=== PATIENT | male | born 1975 | race Caucasian/White ===

== ENCOUNTER 2021-06-18 18:45 | Emergency (ER) | payer BC ==
[~2021-06-18] VITALS: Ht 172.7 cm; Wt 83.9 kg
[2021-06-18] MEDS ORDERED: LEXAPRO 10 MG T10 M2 PO (19:22)
[2021-06-18] MEDS ORDERED: PROTONIX40 M2 PO (19:23)
[2021-06-18] MEDS ORDERED: ICOSAPENT ETHYL1 GM PO (19:24)
[2021-06-18 20:02] LABS: URINE BLOOD NEGATIVE (Negative); URINE CLARITY CLEAR; URINE COLOR YELLOW; URINE GLUCOSE-RANDOM NEGATIVE (Negative); URINE KETONES NEGATIVE (Negative); URINE LEUKOCYTES-REFLEX NEGATIVE (Negative); URINE NITRITE-REFLEX NEGATIVE (Negative); URINE PROTEIN 1+ (Negative); URINE SPECIFIC GRAVITY >= 1.030 (1.005-1.030)
[2021-06-18 20:06] LABS: ICTOTEST (BILI CONFIRMATORY) Negative (Negative); URINE BILIRUBIN 1+ (Negative)
[2021-06-18 20:10] LABS: AMP/METHAMP Negative (Negative); BARBITURATES Negative (Negative); BENZODIAZEPINES Negative (Negative); COCAINE Negative (Negative); METHADONE Negative (Negative); OPIATES Negative (Negative); PCP Negative (Negative); THC POSITIVE (Negative)
[2021-06-18 20:26] LABS: ABSOLUTE BASOPHILS 0.1 thou/uL (0.0-0.2); ABSOLUTE MONOCYTES 0.7 thou/uL (0.0-1.2); ABSOLUTE NEUTROPHILS 8.8 thou/uL (1.6-8.1); BASOPHILS 0.6 %; EOSINOPHILS 0.2 %; HEMATOCRIT 45.4 % (42.0-52.0); HEMOGLOBIN 16.2 gm/dL (14.0-18.0); LYMPHOCYTES 17.5 %; MCHC 35.7 g/dL (28.0-37.0); MCV 89.6 fL (80.0-100.0); MONOCYTES 5.8 %; MPV 8.1 fl. (7.2-11.1); NUCLEATED RBCS 0 /100WBC; PLATELET COUNT* 145 thou/uL (150-400); POLYS 75.9 %; RBC 5.06 mil/uL (4.50-6.00); RDW-CV 12.3 % (10.5-14.5); WBC 11.6 thou/uL (4.0-11.0)
[2021-06-18 20:33] LABS: CREATININE 1.4 mg/dL (0.6-1.3); POTASSIUM 3.9 mmol/L (3.5-5.1)
[2021-06-18 20:37] LABS: TOTAL PROTEIN 8.4 g/dL (6.4-8.2)
[2021-06-18 20:41] LABS: SALICYLATE < 2.8 mg/dL (2.8-20.0)
[2021-06-18 20:45] LABS: ACETAMINOPHEN < 2 ug/mL (10-30); ALCOHOL < 10 mg/dL (<10)
[2021-06-19 09:55] VITALS: BP 129/61
== END 2021-06-19 09:58 | disposition still patient (30) ==
LOC: M.ERS 18:45
PROVIDERS: Emergency Medicine
DX: U07.1 COVID-19 (principal); R45.851 Suicidal ideations; F32.9 Major depressive disorder, single episode, unspecified; Z79.899 Other long term (current) drug therapy; Z88.5 Allergy status to narcotic agent